=== PATIENT | male | born 1965 | race Caucasian/White ===

== ENCOUNTER 2022-08-01 15:12 | Emergency (ER) | payer OTHER, SELFPAY ==
[2022-08-01 15:21] VITALS: BP 152/96; PULSE 67; RESP 18; O2SAT 97
--- NOTE | 2022-08-01 15:45 | DI.CT_ITS ---
Exam(s) CT HEAD WO EXAM: CT HEAD WO CLINICAL HISTORY: struck head skiing, amnesia. TECHNIQUE: Imaging Protocol: Axial computed tomography images with coronal and sagittal reformatted images were created and reviewed COMPARISON: No exams were available for comparison FINDINGS: Ventricles and Extra axial spaces: Normal in size and morphology for the patient's age. Hemorrhage: None. Cerebral parenchyma: Normal. Midline shift: None. Brainstem/Cerebellum: Normal. Calvarium: Normal. Visualized Paranasal sinuses/Mastoids: Clear. Soft Tissues: Unremarkable. IMPRESSION: No acute intracranial process. RADIATION DOSE DELIVERED: 747.15mGy.cm Total DLP DATA REPOSITORY: All CT scans at this facility are submitted to the National Radiology Data Registry (NRDR) Dose Index Registry (DIR) with the [employer] ([employer]). RADIATION OPTIMIZATION: All CT scans at this facility use at least one of these dose optimization te chniques: automated exposure control; mA and/or kV adjustment per patient size (includes targeted exa ms where dose is matched to clinical indication); or iterative reconstruction.
--- NOTE | 2022-08-01 15:49 | W.ED.GENAD ---
Discharge Plan Disposition Patient Disposition: Home Condition: Stable Discharge Details Clinical Impression: Concussion, Abrasion of lip Primary Care Provider: Karely,Local ED Provider: Clarita Montalvo Home Meds and New Rx's Prescriptions: Continued prednisone 5 mg tablet 7.5 mg PO DAILY Patient Comments: TAKE 1 TABLET BY MOUTH DAILY FOR 28 DAYS, AND THEN 0.5 TABS DAILY FOR 28 DAYS vitamin S32-tayfb acid 1,000-400 mcg Tablet, Sublingual 1 tab SUBLINGUAL DAILY methotrexate sodium 2.5 mg tablet 15 mg PO QWEEK vitamin B6-vitamin E-magnesium Tablet 1 tab PO DAILY Discharge Instructions Instructions: Concussion (ED) Additional Instructions: Your imaging was reassuring here today, no evidence of fracture or bleed. However, I am concerned that you have suffered concussion. Please encourage hydration. Please encourage brain rest with sleep hygiene, avoidance of screens, decreased exertion. You may use Tylenol and/or Ibuprofen as needed for discomfort. Please follow up with your primary care in one week for reevaluation. If you develop fevers/chills, increased pain, vomiting, inability to stay hydrated, sensory deficits, weakness or other new/worsening symptoms, please seek care urgently once again. Medical Decision Making Patient is a pleasant 56 year old male, accompanied by his daughter, with c/c of face and head injury. They report that he crashed skiing. He does not have any recollections of the event, bits of memory getting down the mountain and into masking machine feeder. Unclear if LOC. States he was helmeted at the time of the event. Reports he has chronic neck pain. No acute neck pain. Denies any incontinence. No sensory deficits. Was able to get himself down the mountain and has not noted any weakness. Did suffer abrasions to the right side of his mouth. Denies any radiating pain, sensory deficit, weakness, other injury at the time of the incident. Past medical history is pertinent for polymyalgia rheumatica, on methotrexate and steroids. On exam, patient appears nontoxic. She does have some superficial abrasions to the right side of his mouth but he no evidence of maxillary or mandibular fractures. He is hemodynamically stable. Neurologically intact. He does have that episodic amnesia which she estimates to be about half an hour around the time of the incident. No pain with palpation of the C-spine, T-spine, C-spine. Patient did report that he has a's chronic step-off but I was not able to appreciate anything outside of the typical protrusion of C7. And he did not have any pain over these areas. No chest discomfort, lungs are clear. No respiratory distress. Denies any shortness of breath or chest pain. As patient did have the amnesia and some confusion around the time of the incident, I do feel that imaging would be appropriate, particular given the mechanism, to evaluate for potential intracranial hemorrhage. Patient is not anticoagulated. He declines any analgesics. We did discuss C-spine imaging as the patient does have a chronic history of issues with the neck and patient declines. He does report that he has upcoming imaging scheduled. He continues to ice the swollen area of his mouth. FINDINGS: Brain: There is no acute intracranial hemorrhage, mass effect or midline shift. There is no large acute territorial cerebral infarct. Cerebral ventricles: No ventriculomegaly. Paranasal sinuses: The paranasal sinuses are clear. No air-fluid levels. Mastoid air cells: The mastoid air cells are unremarkable. Bones/joints: No acute fracture. Soft tissues: Unremarkable. IMPRESSION: No acute intracranial hemorrhage, mass effect or midline shift. Discussed these findings with patient and daughter. Advised concussion. Encourage brain rest we discussed that this could look like. Encourage hydration. Encourage close follow-up with primary care. Return precautions were discussed. Patient will be staying with daughter and she will continue to keep an eye on him and bring him back if needed. We discussed postconcussive care. I did advise that he try to abstain from screens times in excessive physical exertion. Tetanus was over 10 years, this was updated today. All of his questions and concerns were addressed and he is in agreement this plan. [facility] General Date/Time Provider Initiated Documentation: 08/01/22 15:18. Limitations to Documentation: no limitations. Information obtained by: patient, family (daughter) and RN notes reviewed. History of Present Illness 56 year old M presents to the emergency department with the chief complaint of head injury, facial laceration, described as moderate, with intensity rated at 1 (denies pain currently). Quality is described as aching, and is localized to the head and face. Patient reports no radiation. Patient started experiencing this minute(s) and it has been constant. No relieving factors improve symptom(s), No exacerbating factors reported . Patient notes confusion (amnesia before and after injury), headaches and syncope; denies chest pain, loss of appetite, malaise, nausea/vomiting, shortness of breath and weakness. Patient did receive the following treatments prior to arrival, NSAID (took NSAIDS prior to the injury) Related Data Home Medications Medication Instructions Recorded Confirmed methotrexate sodium 2.5 mg tablet 15 mg PO QWEEK 08/01/22 08/01/22 prednisone 5 mg tablet 7.5 mg PO DAILY 08/01/22 08/01/22 vitamin B12 1,000 mcg-folic acid 1 tab sublingual DAILY 08/01/22 08/01/22 400 mcg sublingual tablet vitamin B6-vitamin E-magnesium 1 tab PO DAILY 08/01/22 08/01/22 tablet Allergies Allergy/AdvReac Type Severity Reaction Status Date / Time codeine Allergy Intermediate Nausea Unverified 08/01/22 15:26 General Stated Complaint: HeadInjury ANIBAL: 3 Review of Systems Constitutional Constitutional: Reports as per HPI, Denies fever(s) and Denies weakness Eyes Eyes: Reports as per HPI and Denies change in vision Cardiovascular Cardiovascular: Reports as per HPI, Denies chest pain and Denies dyspnea Respiratory Respiratory: Reports as per HPI, Denies cough, Denies pain on inspiration and Denies dyspnea Gastrointestinal Gastrointestinal: Reports as per HPI, Denies abdominal pain, Denies nausea and Denies vomiting Genitourinary Genitourinary: Reports as per HPI and Denies urinary incontinence Musculoskeletal Musculoskeletal: Reports as per HPI Integumentary/Breasts Skin/Breast: Reports as per HPI and Denies rash Neurologic Neurologic: Reports as per HPI, Denies abnormal movements, Denies abnormal speech, Denies lack of coordination, Denies localized weakness, Denies paresthesias and Denies weakness PFSH All Active Problems (Updated 08/01/22 @ 17:07 by SHAKIR Garcia) Concussion (Acute) Abrasion of lip (Acute) Social History Smoking/Tobacco Use Status: Never Smoking risk assessment performed?: Yes Alcohol Intake: never Drug use: Never Substance use type: does not use Do you feel safe at home: Yes Do you feel safe in your relationship?: Yes Exam Const General: cooperative, healthy appearing, comfortable, no acute distress, well developed and well groomed Nutritional Appearance: average body habitus and well nourished Orientation: alert, awake and oriented x3 HENMT Head: normal to inspection, no palpable skull fracture, normocephalic and atraumatic Ears: hearing grossly normal bilaterally, external ears normal and TM's normal bilaterally General nose exam: external nose normal Face and sinus: normal facial exam, sinuses nontender and face symmetric Mouth: lip abnormal (swelling, abrasions to right side of upper and lower lip), tongue normal, oropharynx normal, moist mucous membranes, no audible dysphonia, no drooling, mouth trauma (lip trauma, no intraoral injury), no muffled voice, no trismus and No restricted motion Teeth and gingiva: dentition normal and gingiva normal Throat: posterior oropharynx normal Eyes General: appearance normal, both eyes and all related structures Visual Patino: normal visual patino by confrontation Alignment and Position: alignment normal Periorbital: periorbital findings normal Eyelids: eyelids normal Conjunctivae: conjunctivae normal Pupils: PERRL EOM: EOM intact bilaterally Neck Neck: normal visual inspection, full ROM, no lymphadenopathy, no meningeal signs, trachea midline and supple Chest Chest: normal inspection of the chest, normal palpation of entire chest wall, no crepitus and no localized rib tenderness Resp Effort & Inspection: normal respiratory effort, able to speak in complete sentences and no respiratory distress Auscultation: clear to auscultation bilaterally, no rales, no rhonchi and no wheezes Cardio Rate: regular rate Rhythm: regular rhythm Heart Sounds: S1 normal and S2 normal Back/Spine/Pelvis Back: no CVA tenderness Cervical Spine: normal cervical lordosis and cervical ROM normal Thoracic/Lumbar Spine: thoracic and lumbar spine normal to inspection, thoraco-lumbar ROM normal, No thoraco-lumbar ROM limited, No thoraco-lumbar spasm and No thoracic spinal tenderness Skin Rashes: no rashes Trauma: abrasion (right side of upper and lower lip) Neuro General: patient alert, patient awake, patient oriented x3, gait normal, tone normal and moves all extremities Cranial Nerves: CN's II-XI intact bilaterally Cognition: normal cognition Speech: speech normal Gait: normal gait Motor: muscle tone normal throughout and strength 5/5 throughout Sensory Exam: no sensory deficits noted (no saddle paresthesias) Extrem General: normal to inspection, full ROM, capillary refill normal, no pedal edema and no calf tenderness Psych Appearance: grossly normal and well kempt Mental Status: mental status grossly normal Speech and Movement: speech and movement normal Course Vital Signs Vital signs: Vital Signs Pulse 67 08/01/22 15:21 Respiratory Rate 18 08/01/22 15:21 Blood Pressure 152/96 H 08/01/22 15:21 Pulse Oximetry 97 08/01/22 15:21 Temperature Source Skin 08/01/22 15:21 Pulse 67 08/01/22 15:21 Respiratory Rate 18 08/01/22 15:21 Respiratory Effort Normal 08/01/22 15:43 Respiratory Depth Normal 08/01/22 15:43 Respiratory Pattern Normal 08/01/22 15:43 Blood Pressure 152/96 H 08/01/22 15:21 Blood Pressure Position Sitting 08/01/22 15:21 Pulse Oximetry 97 08/01/22 15:21 Oxygen Delivery Method Room Air 08/01/22 15:21 Oxygen Flow Rate 0 08/01/22 15:21 Pain Level 3 08/01/22 15:43
--- NOTE | 2022-08-01 16:56 | DI.VRAD_ITS ---
PROCEDURE INFORMATION: Exam: CT Head Without Contrast Exam date and time: 08/01/2022 4:11 PM Age: 56 years old Clinical indication: Struck head skiing, amnesia TECHNIQUE: Imaging protocol: Computed tomography of the head without contrast. Radiation optimization: All CT scans at this facility use at least one of these dose optimization techniques: automated exposure control; mA and/or kV adjustment per patient size (includes targeted exams where dose is matched to clinical indication); or iterative reconstruction. COMPARISON: No relevant prior studies available. FINDINGS: Brain: There is no acute intracranial hemorrhage, mass effect or midline shift. There is no large acute territorial cerebral infarct. Cerebral ventricles: No ventriculomegaly. Paranasal sinuses: The paranasal sinuses are clear. No air-fluid levels. Mastoid air cells: The mastoid air cells are unremarkable. Bones/joints: No acute fracture. Soft tissues: Unremarkable. IMPRESSION: No acute intracranial hemorrhage, mass effect or midline shift. Dictated and Authenticated by: Angelia Araujo MD. Ordering:TRISTIAN Otto MD
[2022-08-01 17:28] VITALS: BP 132/76; PULSE 72; RESP 14; O2SAT 97
== END 2022-08-01 17:29 | disposition home or self-care (01) ==
PROVIDERS: Emergency Provider Physician Assistant
DX: S00.511A Abrasion of lip, initial encounter (principal); R41.3 Other amnesia; M54.2 Cervicalgia; S09.90XA Unspecified injury of head, initial encounter; W19.XXXA Unspecified fall, initial encounter; Y93.23 Activity, snow (alpine) (downhill) skiing, snowboarding, sledding, tobogganing and snow tubing; S06.0XAA Concussion with loss of consciousness status unknown, initial encounter
CPT/HCPCS: 90471; 99284; 70450